=== PATIENT | female | born 1995 | race Caucasian/White ===

== ENCOUNTER 2018-01-17 02:17 | Inpatient (IN) | payer MEDICAID ==
[2018-01-17] VITALS (54 sets, daily range): BP systolic 81–133; BP diastolic 49–80; PULSE 18–128; RESP 16–18; TEMP 97.9–98.8; O2SAT 98
[~2018-01-17] VITALS: Ht 157.5 cm; Wt 71.2 kg
[2018-01-17] MEDS ORDERED: PREN1TAB45 PO (02:48)
[2018-01-17] MEDS ORDERED: LACTATED RINGER'S 1000 ML INJ 1,000 ML IV PRN (03:07)
[2018-01-17] MEDS ORDERED: LACTATED RINGER'S 1000 ML INJ 1,000 ML IV SCH (03:07)
--- NOTE | 2018-01-17 03:12 | HHI.HP ---
HPI Chief Complaint Water broke Date Seen: Jan 17, 2018 Time Seen: 03:08 Travel History International Travel<30 Days: No Contact w/Intl Traveler<30Days: No Known Affected Area: No History of Present Illness HPI 22-year-old white female G 1 P0 36 weeks presents with spontaneous rupture membranes, amnisure is positive , no bleeding. She is rosey every 2 minutes does not feel them, NST is reactive Weeks Gestation: 36 Para: 0 : 1 History Social History Alcohol Use: No Tobacco Use: No Substance Abuse: No Allergies-Medications (Allergen,Severity, Reaction): Coded Allergies: guaifenesin (Verified Allergy, Severe, Anaphylaxis, 01/17/18) Home Meds Reported Medications Vit,Calc76/Iron/Folic (Pnv 29-1 Tablet) 29 Mg Iron-1 Mg Tablet, 1 TAB PO DAILY 01/17/18 Review of Systems General / Constitutional: No: Fever, Weight Gain, Chills, Other Eyes: No: Diploplia, Blurred Vision, Visual changes, Pain, Photophobia HENT: No: Headaches, Vertigo, Lightheadedness Cardiovascular: No: Irregular Rhythm, Chest Pain or Discomfort, Palpitations, Tachycardia, Syncope, Varicosities, Edema, Cyanosis Respiratory: No: Cough, Short of Breath, Other Gastrointestinal: No: Nausea, Vomiting, Diarrhea Genitourinary: No: Decreased Urinary Output, Oliguria Musculoskeletal: No: Limited ROM, Weakness, Cramping, Edema, Pain Skin: No Rash, No Itching, No Dryness, No Lumps, No Change in Pigmentation, No Change in Nails, No Alopecia, No Lesions Neurologic: No: Weakness, Dizziness, Syncope, Focal Abnormalities, Coordination Problem, Headache, Slurred Speech, Seizures Psychiatric: No: Depression, Suicidal Ideations, Homicidal Ideation Endocrine: No: Heat Intolerance, Cold Intolerance, Polydipsia, Polyuria, Other Physical Exam Narrative GENERAL: Well-nourished, well-developed patient. SKIN: Warm and dry. HEAD: Normocephalic and atraumatic. EYES: No scleral icterus. No injection or drainage. ENT: No nasal drainage noted. Mucous membranes pink. Airway patent. NECK: Supple, trachea midline. No JVD. CARDIOVASCULAR: Regular rate and rhythm without murmurs, gallops, or rubs. RESPIRATORY: Breath sounds equal bilaterally. No accessory muscle use. BREASTS: Bilateral exam showed no masses , no retractions, no nipple discharge. ABDOMEN/GI: Abdomen soft, non-tender, bowel sounds present, no rebound, no guarding Gravid to [-36] weeks size Fundal Height: [36-] GENITOURINARY: External Genitalia: intact and normal in appearance BUS glands: [-] Cervix: [-post] Dilatation: [4-] Effacement: [80-] Station: [-2] Presentation: [-vtx] Membranes: [ ruptured] Uterine Contractions: [-q 2 min] FHT's: Category: [-1] Baseline: [133-] Reactive: [-R] Variability: [-mod] Decels: [0-] EXTREMITIES: No cyanosis or edema. BACK: Nontender without obvious deformity. No CVA tenderness. NEUROLOGICAL: Awake and alert. Motor and sensory grossly within normal limits. Five out of 5 muscle strength in all muscle groups. Normal speech. Caprini VTE Risk Assessment Caprini VTE Risk Assessment: No/Low Risk (score <= 1) Caprini Risk Assessment Model Point Value = 1 Point Value = 2 Point Value = 3 Point Value = 5 Age 41-60 Minor surgery BMI > 25 kg/m2 Swollen legs Varicose veins or History of unexplained or recurrent spontaneous Oral contraceptives or hormone replacement Sepsis (< 1 month) Serious lung disease, including pneumonia (< 1 month) Abnormal pulmonary function Acute myocardial infarction Congestive heart failure (< 1 month) History of inflammatory bowel disease Medical patient at bed rest Age 61-74 Arthroscopic surgery Major open surgery (> 45 min) Laparoscopic surgery (> 45 min) Malignancy Confined to bed (> 72 hours) Immobilizing plaster cast Central venous access Age >= 75 History of VTE Family history of VTE Factor V Leiden Prothrombin [id number] Lupus anticoagulant Anticardiolipin antibodies Elevated serum homocysteine Heparin-induced thrombocytopenia Other congenital or acquired thrombophilia Stroke (< 1 month) Elective arthroplasty Hip, pelvis, or leg fracture Acute spinal cord injury (< 1 month) Prophylaxis Regimen Total Risk Factor Score Risk Level Prophylaxis Regimen 0-1 Low Early ambulation 2 Moderate Order ONE of the following: *Sequential Compression Device (SCD) *Heparin 5000 units SQ BID 3-4 Higher Order ONE of the following medications: *Heparin 5000 units SQ TID *Enoxaparin/Lovenox 40 mg SQ daily (WT < 150 kg, CrCl > 30 mL/min) *Enoxaparin/Lovenox 30 mg SQ daily (WT < 150 kg, CrCl > 10-29 mL/min) *Enoxaparin/Lovenox 30 mg SQ BID (WT < 150 kg, CrCl > 30 mL/min) AND/OR *Sequential Compression Device (SCD) 5 or more Highest Order ONE of the following medications: *Heparin 5000 units SQ TID (Preferred with Epidurals) *Enoxaparin/Lovenox 40 mg SQ daily (WT < 150 kg, CrCl > 30 mL/min) *Enoxaparin/Lovenox 30 mg SQ daily (WT < 150 kg, CrCl > 10-29 mL/min) *Enoxaparin/Lovenox 30 mg SQ BID (WT < 150 kg, CrCl > 30 mL/min) AND *Sequential Compression Device (SCD) Data Data Orders Orders Admit To Inpatient (01/17/18 ) Vital Signs (Adult) .Per protocol (01/17/18 03:07) Heart (01/17/18 03:07) Amnioinfusion (01/17/18 03:07) Urinary Catheter Management .ONCE (01/17/18 03:07) Lactated Ringer's 1000 Ml Inj (Lr 1000 M (01/17/18 03:07) Lactated Ringer's 1000 Ml Inj (Lr 1000 M (01/17/18 03:07) Sodium Chlorid 0.9% 500 Ml Inj (Ns 500 M (01/17/18 03:15) Sodium Chlor 0.9% 1000 Ml Inj (Ns 1000 M (01/17/18 03:27) Lidocaine 1% Inj (50 Ml) (Xylocaine 1% I (01/17/18 03:15) Citric Acid-Sodium Citrate Liq (Bicitra (01/17/18 03:15) Fentanyl Inj (Fentanyl Inj) (01/17/18 03:15) Fentanyl Inj (Fentanyl Inj) (01/17/18 03:15) Complete Blood Count With Diff (01/17/18 03:07) Hold Clot (01/17/18 03:07) Abo/Rh Blood Type (01/17/18 03:07) Urinalysis - C+S If Indicated (01/17/18 03:07) Drug Screen, Random Urine (01/17/18 03:07) Ob/Psych Drug Screen, Urine (01/17/18 03:07) Type And Screen (01/17/18 03:07) Resp Oxygen Non Rebreathe Mask (01/17/18 ) ^ Epidural / Intrathecal Infus (01/17/18 03:07) Oxytocin 30 Units-500ml Premix (Pitocin (01/17/18 03:15) Lidocaine 1% Inj (50 Ml) (Xylocaine 1% I (01/17/18 03:15) Light Mineral Oil (Muri-Lube Oil) (01/17/18 03:15) Group B Strep: Positive Assessment/Plan Assessment and Plan Impression-36 week intrauterine primiparous with spontaneous rupture membranes, positive GBS Plan-admit to labor and delivery, managed labor appropriately and augment as needed, anticipate vaginal delivery, begin penicillin for GBS Pravin Bowers II, MD Jan 17, 2018 03:12
[2018-01-17] MEDS ORDERED: SODIUM CHLORID 0.9% 500 ML INJ 500 ML IV PRN (03:15)
[2018-01-17] MEDS ORDERED: OXYTOCIN 30 UNITS-500ML PREMIX 500 ML IV ONE (03:15)
[2018-01-17] MEDS ORDERED: CITRIC ACID-SODIUM CITRATE LIQ 30 ML UDC PO SCH (03:15)
[2018-01-17] MEDS ORDERED: LIDOCAINE HCL 1% 50 ML VIAL INFIL PRN (03:15)
[2018-01-17] MEDS ORDERED: LIDOCAINE HCL 1% 50 ML VIAL I-DERMAL PRN (03:15)
[2018-01-17] MEDS ORDERED: PENICILLIN G POTASSIUM INJ 5,000,000 UNITS in SODIUM CHLORIDE 0.9% INJ 100 ML IV ONE (03:15)
[2018-01-17] MEDS ORDERED: SODIUM CHLOR 0.9% 1000 ML INJ 1,000 ML IV PRN (03:27)
[2018-01-17 03:44] LABS: AUTOMATED NEUTROPHIL # 7.3 TH/MM3 (1.8-7.7); BASOPHIL % 0.4 % (0.0-2.0); EOSINOPHIL # 0.2 TH/MM3 (0-0.4); EOSINOPHIL % 1.7 % (0.0-4.0); HEMATOCRIT 30.5 % (35.0-46.0); HEMOGLOBIN 10.2 GM/DL (11.6-15.3); LYMPH % 17.8 % (9.0-44.0); LYMPHOCYTE # 1.8 TH/MM3 (1.0-4.8); MEAN CELL VOLUME 82.8 FL (80.0-100.0); MEAN CORPUSCULAR HEMOGLOBIN 27.7 PG (27.0-34.0); MEAN CORPUSCULAR HGB CONC 33.5 % (32.0-36.0); MEAN PLATELET VOLUME 8.8 FL (7.0-11.0); MONO % 7.9 % (0.0-8.0); MONOCYTE # 0.8 TH/MM3 (0-0.9); NEUT % 72.2 % (16.0-70.0); PLATELET COUNT 183 TH/MM3 (150-450); RED BLOOD COUNT 3.69 MIL/MM3 (4.00-5.30)
[2018-01-17 03:46] LABS: AMORPHOUS SEDIMENT, URINE RARE; BACTERIA, URINE RARE /hpf; BILIRUBIN, URINE NEG (NEG); BLOOD, URINE MOD (NEG); GLUCOSE,URINE NEG (NEG); KETONE, URINE NEG (NEG); NITRITE,URINE NEG (NEG); PH, URINE 6.5 (5.0-8.5); SQUAMOUS EPITHELIAL CELL URINE 4 /hpf (0-5); URINE COLOR YELLOW (YELLW/STRAW); URINE LEUKOCYTE ESTERASE LARGE (NEG)
--- NOTE | 2018-01-17 06:46 | PD.LABORPN ---
Subjective Subjective 22 yo wf G1 at 37 1/2 with SROM at home comfortable so far with no epidural Objective Objective 37 1/2 weeks SROM with some UCs that are mild GBS neg 5-6/90%/-1 EFW 7 pounds pelvis clinically adequate strip category 1 Weeks Gestation: 37 Gest Age Assessed Date: Jan 17, 2018 Gest Age Assessed Time: 06:44 Pt started active labor?: Yes Active labor start date: Jan 17, 2018 Active labor start time: 02:00 Medical induction of labor?: No Artificial rupture of membrane: No Assessment/Plan Assessment and Plan 37 1/2 SROM entering active labor anticipate augment and epidural as needed Marilia Blue MD Jan 17, 2018 06:46
[2018-01-17] MEDS ORDERED: OXYTOCIN 30 UNITS-500ML PREMIX 500 ML IV PRN ×2 (07:00→09:15)
[2018-01-17] MEDS: PENICILLIN G POTASSIUM INJ 2,500,000 UNITS in SODIUM CHLORIDE 0.9% INJ 100 ML IV SCH ×2 (07:15→11:15)
[2018-01-17] MEDS ORDERED: fentaNYL 2MCG-BUPIV 0.125% INJ 150 ML EPIDURAL ONE (08:49)
[2018-01-17] MEDS ORDERED: ePHEDrine/NS 25 MG/5 ML SYRINGE ONE (08:49)
--- NOTE | 2018-01-17 09:19 | HHI.PR ---
LOCOMOTIVE OBSERVER Note Note S: feeling better with epidural in place O: VSS; Cat I tracing SVE: /-1 A/P: 22 yo G1 with heredia IUP at 36w4d admit for PPROM/labor - continue active mgmt; no change in past 3h, start pitocin - GBS neg - status: Cat I tracing Lida Leger MD Jan 17, 2018 09:18
[2018-01-17] MEDS ORDERED: fentaNYL 2MCG-BUPIV 0.125% 150 ML EPIDURAL PRN (09:30)
[2018-01-17] MEDS ORDERED: DO NOT ADMINISTER ANTICOAGULANTS PRN (09:30)
[2018-01-17] MEDS ORDERED: ePHEDrine/NS 25 MG/5 ML SYRINGE IV PUSH PRN (09:30)
[2018-01-17] MEDS ORDERED: NO SYSTEM NARCOTICS PRN (09:30)
[2018-01-17] MEDS ORDERED: LIDOCAINE HCL 1% PF 30 ML VIAL ONE (12:22)
--- NOTE | 2018-01-17 13:11 | PD.OB.DELI ---
Weeks gestation: 37 Gest age assessed date: Jan 17, 2018 Gest age assessed time: 06:44 Pt started active labor?: Yes Active labor start date: Jan 17, 2018 Active labor start time: 02:00 Medical induction of labor?: No Artificial rupture of membrane: No Anesthesia: Epidural Episiotomy: Midline Vaginal Delivery: Normal Presentation: Vertex Nuchal Cord: x1 (loose, reduced at perineum) Delayed cord clamping (45 sec): Yes : Male Delivery date: Jan 17, 2018 Delivery time: 12:24 One Minute : 8 Five Minute : 9 Weight: 6#10oz Placenta: Manual removal (bilobed, did not deliver after 30 min of cord traction & fundal massage), Intact, Uterus explored + (clean, no remaining membrane), 3 vessel cord, Other (send for pathology review; pt will be put on 24h of IV Unasyn as precaution for manual extraction) Laceration: Episiotomy, Perineal laceration, 2 deg Repair: Chromic running Estimated blood loss: 200 mL Additional Information healthy male infant "Thee" 36w4d Lida Leger MD Jan 17, 2018 13:11
[2018-01-17] MEDS ORDERED: ONDANSETRON ODT 4 MG TAB PO PRN (13:15)
[2018-01-17] MEDS ORDERED: SODIUM CHLORIDE 0.9% FLUSH 10 ML FLUSH IV FLUSH PRN (13:15)
[2018-01-17] MEDS ORDERED: BENZOCAINE 20% TOPICAL SPRAY 60 ML CAN TOPICAL PRN (13:15)
[2018-01-17] MEDS ORDERED: ACETAMINOPHEN 325 MG TAB PO PRN (13:15)
[2018-01-17] MEDS ORDERED: OXYTOCIN 30 UNITS-500ML PREMIX 500 ML IV SCH (13:15)
[2018-01-17] MEDS ORDERED: ALUMINUM/MAGNESIUM/SIMETH 30 ML CUP PO PRN (13:15)
[2018-01-17] MEDS: SODIUM CHLORIDE 0.9% FLUSH 10 ML FLUSH IV FLUSH SCH (13:15)
[2018-01-17] MEDS ORDERED: WITCH HAZEL 50%/GLYCERIN 12.5% 40 PAD JAR TOPICAL PRN (13:15)
[2018-01-17] MEDS ORDERED: ZOLPIDEM TARTRATE 5 MG TAB PO PRN (13:15)
[2018-01-17] MEDS ORDERED: oxyCODONE/ACETAMINOPHEN 5 MG/325 MG TAB PO PRN (13:15)
[2018-01-17] MEDS: MINERAL OIL 10 ML VIAL TOPICAL PRN (14:24)
[2018-01-17] MEDS: AMPICILLIN-SULBACTAM INJ 3 GM in SODIUM CHLORIDE 0.9% INJ 100 ML IV SCH ×2 (15:29→21:39)
[2018-01-17] MEDS: IBUPROFEN 800 MG TAB PO PRN (15:47)
[2018-01-17] MEDS: oxyCODONE/ACETAMINOPHEN 5 MG/325 MG TAB PO PRN ×2 (15:47→21:39)
[2018-01-17] MEDS: DOCUSATE SODIUM 50 MG/SENNA 8.6 MG TAB PO PRN (15:48)
[2018-01-17] MEDS ORDERED: MEASLES, MUMPS, RUBELLA VACCINE 0.5 ML VIAL SQ ONE (16:00)
[2018-01-17] MEDS ORDERED: DIPHTH/TETANUS/ACEL PERTUSSIS (BOOSTER) 0.5 ML VIAL/PFS IM ONE (16:00)
[2018-01-17] MEDS ORDERED: fentaNYL CITRATE 250 MCG/5 ML AMP ONE (20:04)
[2018-01-17] MEDS ORDERED: MIDAZOLAM HCL 2 MG/2 ML VIAL ONE (20:04)
[2018-01-18] MEDS: oxyCODONE/ACETAMINOPHEN 5 MG/325 MG TAB PO PRN ×2 (01:48→23:22)
[2018-01-18] MEDS: IBUPROFEN 800 MG TAB PO PRN ×3 (01:49→21:00)
[2018-01-18] MEDS: AMPICILLIN-SULBACTAM INJ 3 GM in SODIUM CHLORIDE 0.9% INJ 100 ML IV SCH ×2 (03:38→09:38)
[2018-01-18 08:00] VITALS: BP 115/70; PULSE 82; RESP 18; TEMP 97.6; O2SAT 98
--- NOTE | 2018-01-18 08:12 | HHI.OB ---
Subjective Post Day: 1 Remarks doing well, min lochia Objective Objective Remarks GENERAL: Well-nourished, well-developed patient. CARDIOVASCULAR: Regular rate and rhythm without murmurs, gallops, or rubs. RESPIRATORY: Breath sounds equal bilaterally. No accessory muscle use. ABDOMEN/GI: Abdomen soft, non-tender. Fundus: Firm, non-tender at umbilicus. GENITOURINARY: Light to moderate bleeding. EXTREMITIES: No cyanosis or edema, non-tender, without signs of DVT. Medications and IVs Current Medications Medications (Trade) Dose Ordered Sig/Phi Route Start Time Stop Time Status Last Admin (NS Flush) 2 ml BID IV FLUSH 01/17/18 13:15 (NS Flush) 2 ml UNSCH PRN IV FLUSH 01/17/18 13:15 (Tylenol) 650 mg Q4H PRN PO 01/17/18 13:15 (Motrin) 800 mg Q8H PRN PO 01/17/18 13:15 01/18/18 01:49 (Percocet 5-325 Mg) 1 tab Q4H PRN PO 01/17/18 13:15 01/18/18 01:48 (Percocet 5-325 Mg) 2 tab Q4H PRN PO 01/17/18 13:15 (Americaine 20% Top Spr) 1 spray Q4H PRN TOPICAL 01/17/18 13:15 01/17/18 21:39 (Tucks Pads) 1 applic QID PRN TOPICAL 01/17/18 13:15 01/17/18 21:39 (Brenna-Colace) 2 tab Q12H PRN PO 01/17/18 13:15 01/17/18 15:48 (Ambien) 5 mg HS PRN PO 01/17/18 13:15 (Mag-Al Plus Susp Liq) 15 ml Q8H PRN PO 01/17/18 13:15 (Zofran Odt) 4 mg Q6H PRN PO 01/17/18 13:15 01/17/18 17:54 Ampicillin Sodium/ Sulbactam Sodium 3 gm/Sodium Chloride 100 ml @ 200 mls/hr Q6H IV 01/17/18 14:00 01/18/18 08:29 01/18/18 03:38 Assessment/Plan Assessment and Plan PPD 1 s/p after PPROM, manual removal of bilobed uterus -continue routine pp care - consultation prn - GBS + Discharge Planning PPD 2 Danielle Stallworth MD Jan 18, 2018 08:12
[2018-01-18] MEDS: SODIUM CHLORIDE 0.9% FLUSH 10 ML FLUSH IV FLUSH SCH (09:38)
[2018-01-18] MEDS ORDERED: IBUP1TAB7 PO (13:47)
--- NOTE | 2018-01-18 13:47 | HHI.DCPOC ---
Discharge Care Plan Diagnosis: (1) delivery Your Health Problems Are: Vaginal delivery Report Symptoms to Your Doctor -Temperature above 100.5 degrees -Redness, of incision or excessive or foul smelling drainage -Unusual pain or calf pain -Increased vaginal bleeding -Painful or difficulty urinating -Feelings of extreme sadness or anxiety after 2 weeks Goals to Promote Your Health * To prevent worsening of your condition and complications * To maintain your health at the optimal level Directions to Meet Your Goals Take your medications as prescribed Follow your dietary instruction Follow activity as directed Ensure plenty of rest for recovery Drink fluids for hydration Keep your appointments as scheduled Take your immunizations and boosters as scheduled If your symptoms worsen call your PCP, if no PCP go to Urgent Care Center or Emergency Room Smoking is Dangerous to Your Health. Avoid second hand smoke Call the 24-hour crisis hotline for domestic abuse at Danielle Stallworth MD Jan 18, 2018 13:47
[2018-01-18 20:34] VITALS: BP 111/72; PULSE 55; RESP 17; TEMP 98
[2018-01-18] MEDS: DOCUSATE SODIUM 50 MG/SENNA 8.6 MG TAB PO PRN (20:59)
[2018-01-19] MEDS: IBUPROFEN 800 MG TAB PO PRN ×2 (04:44→14:24)
--- NOTE | 2018-01-19 09:34 | HHI.OB ---
Subjective Post Day: 2 Remarks PPD#2; STABLE, PLAN DISCHARGE FOR TODAY Objective Vitals/I&O Vital Signs Date Time Temp Pulse Resp B/P (MAP) Pulse Ox O2 Delivery O2 Flow Rate FiO2 01/18/18 20:34 98.0 55 17 111/72 (85) Objective Remarks GENERAL: Well-nourished, well-developed patient. CARDIOVASCULAR: Regular rate and rhythm without murmurs, gallops, or rubs. RESPIRATORY: Breath sounds equal bilaterally. No accessory muscle use. ABDOMEN/GI: Abdomen soft, non-tender. Fundus: Firm, non-tender at umbilicus. GENITOURINARY: Light to moderate bleeding. EXTREMITIES: No cyanosis or edema, non-tender, without signs of DVT. Medications and IVs Current Medications Medications (Trade) Dose Ordered Sig/Phi Route Start Time Stop Time Status Last Admin (NS Flush) 2 ml BID IV FLUSH 01/17/18 13:15 01/18/18 09:38 (NS Flush) 2 ml UNSCH PRN IV FLUSH 01/17/18 13:15 (Tylenol) 650 mg Q4H PRN PO 01/17/18 13:15 (Motrin) 800 mg Q8H PRN PO 01/17/18 13:15 01/19/18 04:44 (Percocet 5-325 Mg) 1 tab Q4H PRN PO 01/17/18 13:15 01/18/18 23:22 (Percocet 5-325 Mg) 2 tab Q4H PRN PO 01/17/18 13:15 (Americaine 20% Top Spr) 1 spray Q4H PRN TOPICAL 01/17/18 13:15 01/17/18 21:39 (Tucks Pads) 1 applic QID PRN TOPICAL 01/17/18 13:15 01/17/18 21:39 (Brenna-Colace) 2 tab Q12H PRN PO 01/17/18 13:15 01/18/18 20:59 (Ambien) 5 mg HS PRN PO 01/17/18 13:15 (Mag-Al Plus Susp Liq) 15 ml Q8H PRN PO 01/17/18 13:15 (Zofran Odt) 4 mg Q6H PRN PO 01/17/18 13:15 01/17/18 17:54 Assessment/Plan Assessment and Plan PPD 1 s/p after PPROM, manual removal of bilobed uterus -continue routine pp care - consultation prn - GBS + PPD#2; stable, awaiting eval. by PEDS ; Anticipate discharge for today; will decide about circ. and bring back in to office RTO in 2 weeks Discharge Planning PPD 2 Harshad Wellington MD Jan 19, 2018 09:34
== END 2018-01-19 14:50 | disposition home or self-care (01) | DRG 775 ==
LOC: HOBED 02:17 → H2EA 03:12 → H1EA 15:13
PROVIDERS: ADMIT Obstetrics & Gynecology; ATTEND Obstetrics & Gynecology
PROC: 10E0XZZ Delivery of Products of Conception, External Approach (ICD-10-PCS; principal; 2018-01-17)
PROC: 0KQM0ZZ Repair Perineum Muscle, Open Approach (ICD-10-PCS; 2018-01-17)
PROC: 0W8NXZZ Division of Female Perineum, External Approach (ICD-10-PCS; 2018-01-17)
DX: O60.14X0 Preterm labor third trimester with preterm delivery third trimester, not applicable or unspecified (principal); O99.824 Streptococcus B carrier state complicating childbirth; O69.81X0 Labor and delivery complicated by cord around neck, without compression, not applicable or unspecified; O70.1 Second degree perineal laceration during delivery; O43.193 Other malformation of placenta, third trimester; Z37.0 Single live birth; Z3A.36 36 weeks gestation of pregnancy
CPT/HCPCS: 59025; 80307; 81001; 84112; 85025; 86850; 86900; 86901; 87086; 88307; G0481; J0295; J2250; J2540; J2590; J3010; J7120